=== PATIENT | female | born 1975 | race Caucasian/White ===

== ENCOUNTER 2016-12-27 09:45 | Inpatient (IN) | payer OTHER ==
[~2016-12-27] VITALS: Ht 172.7 cm; Wt 162.3 kg
[~2016-12-27 09:45] MED LIST: CHONCAP PO; MULT-360 PO; ZINC1CAP PO; ZNTT/150 PO
[2016-12-27] MEDS ORDERED: ACETAMINOPHEN 325 MG TAB PO PRN (10:30)
[2016-12-27] MEDS ORDERED: PATIENT'S HEIGHT AND/OR WEIGHT NEEDED SCH (10:45)
[2016-12-27 11:48] VITALS: BP 135/79; PULSE 68; TEMP 36.6; O2SAT 96; Ht 172.7 cm; Wt 162.3 kg
[2016-12-27 12:03] LABS: BASO % 0.1 %; BASO ABS # 0.01 K/uL (0-0.2); COMPLETE YES; EOS % 2.7 %; HEMATOCRIT 38.9 % (37-47); IG% 0.3 %; LYMPH % 17.3 %; LYMPH ABS # 1.74 K/uL (1.2-3.4); MEAN CELL VOLUME 80.2 fL (80-100); MEAN CORPUSCULAR HEMOGLOBIN 24.9 pg (25-34); MEAN CORPUSCULAR HGB CONC 31.1 g/dl (32-36); MONO % 5.8 %; NEUT % 73.8 %; PLATELET COUNT 301 K/uL (130-400); RED BLOOD COUNT 4.85 M/uL (4.2-5.4); WHITE BLOOD COUNT 10.03 K/uL (4.8-10.8)
[2016-12-27 12:08] VITALS: BP 135/79; PULSE 68; TEMP 36.6; O2SAT 96
[2016-12-27 12:23] LABS: PARTIAL THROMBOPLASTIN RATIO 1.2; PROTHROMBIN TIME (PATIENT) 10.4 SECONDS (9.0-12.0)
[2016-12-27 12:29] LABS: C-REACTIVE PROTEIN 4.52 mg/dl (0-0.29); CREATININE 0.61 mg/dl (0.60-1.20)
[2016-12-27 12:32] LABS: ALB/GLOB RATIO 0.9 (0.9-2)
[2016-12-27 12:55] LABS: CALCIUM 9.8 mg/dl (8.5-10.1)
[2016-12-27 15:04] VITALS: BP 128/79; PULSE 69; TEMP 36.6; O2SAT 100
[2016-12-27] MEDS ORDERED: GLUC10007 PO (16:05)
[2016-12-27] MEDS ORDERED: PEDICHW50 PO (16:05)
[2016-12-27] MEDS ORDERED: CALCPOW18 PO (16:05)
--- NOTE | 2016-12-27 16:18 | History and Physical ---
History & Physical Date & Time of Service: Dec 27, 2016 at ~ 14:00 . Chief Complaint: abdominal wall abscess . Primary Care Physician: Braulio Plata M.D. . History of Present Illness Source: patient, clinic records, hospital records 41-year-old female followed by Dr. Plata in [place]. History of MRSA infection several years ago. Developed an abscess in her right lower abdominal wall about 6 days prior to admission. She was seen in [facility] on 12/23/16. Incision and drainage performed. The next day she developed fever and chills. Reevaluated at the Wound Clinic today and was found to have expanding erythema around the incised abscess. She was referred to the hospital for inpatient intravenous antibiotics. . 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 Family History FATHER Hypertension MOTHER Hypertension GRANDFATHER Hypertension GRANDMOTHER Hypertension Diabetes mellitus GRANDFATHER Hypertension FH: pancreatic cancer GRANDMOTHER Hypertension FH: CAD (coronary artery disease) Social History Smoking Status: Never Smoker Alcohol Use: socially Drug Use: none Marital Status: single Occupational Status: employed Allergies Coded Allergies: Cephalexin (Unverified Allergy, Unknown, ., 12/27/16) Home Medications Scheduled Calcium Citrate Tetrahydrate ( (Calcium Citrate), PO BID Chondroitin Sulfate-Vitamin C- (Chondroitin Sulfate), 150 MG PO BID Glucosamine Sulfate (Glucosamine), 1,000 MG PO BID Pediatric Multiple Vitamin W/ (Flintstones Chewable), 1 TAB PO BID Ranitidine (Zantac), 150 MG PO BID Zinc Sulfate (Zinc Sulfate), 220 MG PO DAILY Review of Systems Constitutional: + fever, + chills, + weight loss (intentional) Eyes: No worsening of vision, No diplopia ENT: No nasal symptoms, No sore throat Respiratory: No cough, No shortness of breath Cardiovascular: + edema (chronic right ankle), No chest pain Abdomen: No pain, No nausea, No vomiting, No diarrhea, No GI bleeding Musculoskeletal: + joint pain (knees and feet) Genitourinary - Female: No dysuria, No hematuria Neurologic: + problem reported (occasional migraine headaches) Endocrine: No excessive thirst, No excessive urination Hematologic / Lymphatic: No abnormal bleeding/bruising Integumentary: + rash (as noted in HPI) Physical Exam Vital Signs Date Time Temp Pulse Resp B/P (MAP) Pulse Ox O2 Delivery O2 Flow Rate FiO2 12/27/16 15:04 36.6 69 18 128/79 (95) 100 Room Air 12/27/16 12:08 36.6 68 18 135/79 (97) 96 Room Air 12/27/16 11:48 36.6 68 18 135/79 96 Room Air General Appearance: WD/WN, no apparent distress, + obese Head: normocephalic, atraumatic Eyes: normal inspection, PERRL, EOMI, sclerae normal ENT: normal ENT inspection, hearing grossly normal, pharynx normal Neck: supple, no adenopathy, thyroid normal, no JVD, trachea midline Respiratory/Chest: lungs clear, no respiratory distress, no accessory muscle use Cardiovascular: regular rate, rhythm, no edema, no gallop, no JVD, no murmur Abdomen/GI: normal bowel sounds, non tender, soft, no organomegaly, no pulsatile mass Extremities/Musculoskelatal: normal inspection, no calf tenderness 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 (PERRL, EOMI, no facial palsy), no motor/sensory deficits (motor strength grossly intact), alert, oriented x 3 Skin: + pertinent finding (incised abscess RLQ abdomen with surrounding erythema) Lymphatic: no adenopathy (cervical) Diagnostics Laboratory Results Results Past 24 Hours Test 12/27/16 11:43 Range/Units White Blood Count 10.03 4.8-10.8 K/uL Red Blood Count 4.85 4.2-5.4 M/uL Hemoglobin 12.1 12.0-16.0 g/dL Hematocrit 38.9 37-47 % Mean Corpuscular Volume 80.2 80-100 fL Mean Corpuscular Hemoglobin 24.9 25-34 pg Mean Corpuscular Hemoglobin Concent 31.1 32-36 g/dl Platelet Count 301 130-400 K/uL Mean Platelet Volume 10.0 7.4-10.4 fL Neutrophils (%) (Auto) 73.8 % Lymphocytes (%) (Auto) 17.3 % Monocytes (%) (Auto) 5.8 % Eosinophils (%) (Auto) 2.7 % Basophils (%) (Auto) 0.1 % Neutrophils # (Auto) 7.40 1.4-6.5 K/uL Lymphocytes # (Auto) 1.74 1.2-3.4 K/uL Monocytes # (Auto) 0.58 0.11-0.59 K/uL Eosinophils # (Auto) 0.27 0-0.5 K/uL Basophils # (Auto) 0.01 0-0.2 K/uL RDW Standard Deviation 45.7 36.4-46.3 fL RDW Coefficient of Variation 15.5 11.5-14.5 % Immature Granulocyte % (Auto) 0.3 % Immature Granulocyte # (Auto) 0.03 0.00-0.02 K/uL Erythrocyte Sedimentation Rate 37 0-21 mm/hr Prothrombin Time 10.4 9.0-12.0 SECONDS Prothromb Time International Ratio 1.0 0.9-1.1 Activated Partial Thromboplast Time 30.6 21.0-31.0 SECONDS Partial Thromboplastin Ratio 1.2 Sodium Level 140 136-145 mmol/L Potassium Level 4.0 3.5-5.1 mmol/L Chloride Level 105 98-107 mmol/L Carbon Dioxide Level 28 21-32 mmol/L Anion Gap 7.0 3-11 mmol/L Blood Urea Nitrogen 14 7-18 mg/dl Creatinine 0.61 0.60-1.20 mg/dl Est Creatinine Clear Calc Drug Dose 197.8 ml/min Estimated GFR () 130.5 Estimated GFR (Non- 112.6 BUN/Creatinine Ratio 23.0 10-20 Random Glucose 76 70-99 mg/dl Calcium Level 9.8 8.5-10.1 mg/dl Total Bilirubin 0.3 0.2-1 mg/dl Aspartate Amino Transf (AST/SGOT) 16 15-37 U/L Alanine Aminotransferase (ALT/SGPT) 29 12-78 U/L Alkaline Phosphatase 94 45-117 U/L C-Reactive Protein 4.52 0-0.29 mg/dl Total Protein 7.0 6.4-8.2 gm/dl Albumin 3.4 3.4-5.0 gm/dl Globulin 3.6 2.5-4.0 gm/dl Albumin/Globulin Ratio 0.9 0.9-2 Microbiology Results 12/27/16 Blood Culture, Received Pending 12/27/16 MRSA DNA Surveillance Screen - Final, Complete Specimen Negative for MRSA by DNA Probe 12/27/16 Gram Stain, Received Pending 12/27/16 Wound Culture, Received Pending Impression Assessment and Plan ABSCESS / CELLULITIS ABDOMINAL WALL Worsening cellulitis despite I&D in Wound Clinic. Does not appear to be septic. Wound culture from I&D 12/23 grew MSSA, resistant only to erythromycin. History of MRSA several years ago. Check blood cultures and repeat wound culture. Start therapy with intravenous vancomycin. Consult Wound Care Team. Consult ID. GERD Continue ranitidine. VTE PROPHYLAXIS Low-moderate risk. SQ enoxaparin. Ambulate. DISPOSITION Expected discharge to home. Primary Care follow-up with Dr. Plata. Wound Care follow-up with Dr. Dwyer at [facility]. . Advanced Directives Existing Living Will: No Existing Power of Voice Network Engineer: No VTE Prophylaxis VTE Risk Assessment Done? Y/N: Yes Risk Level: Moderate Given or contraindicated: Enoxaparin (Lovenox)SQ
[2016-12-27] MEDS ORDERED: VANCOMYCIN CONSULT ACTIVE PRN (16:30)
[2016-12-27] MEDS ORDERED: VANCOMYCIN INJ 2,800 MG in SODIUM CHLORIDE 0.9% 500ML 500 ML IV SCH (16:45)
--- NOTE | 2016-12-27 20:17 | Pharmacy Progress Note ---
Pharmacy Abx Initial Consult Date of Service Dec 27, 2016. Pharmacy Dosing Scope Date of Consult: 12/27/16 Consultation requested by: Dr. Reagan Pharmacy is consulted to initiate IV Vancomycin dosing therapy, order appropriate labs and adjust drug dose/frequency. Subjective The patient is a 41 year old female admitted on Dec 27, 2016 at 10:21. Objective Height (Feet): 5 Height (Inches): 8.00 Weight (Kilograms): 162.300 Vital Signs (Past 12Hrs) Vital Signs Past 12 Hours Date Time Temp Pulse Resp B/P (MAP) Pulse Ox O2 Delivery O2 Flow Rate FiO2 12/27/16 15:04 36.6 69 18 128/79 (95) 100 Room Air 12/27/16 12:08 36.6 68 18 135/79 (97) 96 Room Air 12/27/16 11:48 36.6 68 18 135/79 96 Room Air Lab Results (24Hrs) Laboratory Tests (24 Hours) Test 12/27/16 11:43 C-Reactive Protein 4.52 mg/dl (0-0.29) H Erythrocyte Sedimentation Rate 37 mm/hr (0-21) H White Blood Count 10.03 K/uL (4.8-10.8) Red Blood Count 4.85 M/uL (4.2-5.4) Hemoglobin 12.1 g/dL (12.0-16.0) Hematocrit 38.9 % (37-47) Mean Corpuscular Volume 80.2 fL (80-100) Mean Corpuscular Hemoglobin 24.9 pg (25-34) L Mean Corpuscular Hemoglobin Concent 31.1 g/dl (32-36) L Platelet Count 301 K/uL (130-400) Mean Platelet Volume 10.0 fL (7.4-10.4) Neutrophils (%) (Auto) 73.8 % Lymphocytes (%) (Auto) 17.3 % Monocytes (%) (Auto) 5.8 % Eosinophils (%) (Auto) 2.7 % Basophils (%) (Auto) 0.1 % Neutrophils # (Auto) 7.40 K/uL (1.4-6.5) H Lymphocytes # (Auto) 1.74 K/uL (1.2-3.4) Monocytes # (Auto) 0.58 K/uL (0.11-0.59) Eosinophils # (Auto) 0.27 K/uL (0-0.5) Basophils # (Auto) 0.01 K/uL (0-0.2) Micro Results Date/Time Source Procedure Growth Status 12/27/16 11:43 Blood Blood Culture Pending Received 12/27/16 14:25 Nasal MRSA DNA Surveillance Screen - Final Specimen Negative for MRSA by DNA Probe Complete 12/27/16 14:10 Drainage - Surface Abdomen Gram Stain Pending Received 12/27/16 14:10 Drainage - Surface Abdomen Wound Culture Pending Received Assessment & Plan Assessment 41 year old female, morbidly obese with abdominal abscess/cellulitis that Dr. Reagan consulted pharmacy to dose Vancomycin. Plan Vancomycin for treatment of abscess Vancomycin IV * Loading dose: 2800 mg (17 mg/kg) * Maintenance dose: 1900 mg IV (~12 mg/kg) every 8 hours * Goal trough level for abscess : 15-20 mcg/mL * Trough level ordered prior to 0200 dose on 12/29/16 * A less than traditional dose has been selected due to likelihood of drug accumulation in this obese patient. Pharmacy will continue to follow and will adjust dose/frequency as necessary. Thank you.
[2016-12-27] MEDS: ENOXAPARIN 40 MG/0.4 ML SYR SQ SCH (20:45)
[2016-12-27] MEDS: RANITIDINE HCL 150 MG TAB PO SCH (21:20)
[2016-12-27 23:06] VITALS: BP 112/71; PULSE 73; TEMP 36.7; O2SAT 97
[2016-12-28] MEDS ORDERED: VANCOMYCIN TROUGH SCH (01:30)
[2016-12-28] MEDS: VANCOMYCIN INJ 1,900 MG in SODIUM CHLORIDE 0.9% 500ML 500 ML IV SCH ×3 (02:55→18:07)
[2016-12-28 07:19] VITALS: BP 133/90; PULSE 61; TEMP 36.6; O2SAT 100
[2016-12-28 07:54] LABS: CREATININE 0.64 mg/dl (0.60-1.20)
[2016-12-28] MEDS: RANITIDINE HCL 150 MG TAB PO SCH ×2 (09:21→21:10)
[2016-12-28 15:33] VITALS: BP 132/87; PULSE 64; TEMP 36.7; O2SAT 100
[2016-12-28] MEDS: ENOXAPARIN 40 MG/0.4 ML SYR SQ SCH (21:10)
[2016-12-28 23:07] VITALS: BP 114/78; PULSE 74; TEMP 36.6; O2SAT 99
--- NOTE | 2016-12-28 23:32 | Progress Note ---
Medicine Progress Note Date & Time of Visit: Dec 28, 2016 at 10:37 . Subjective No fever. No nausea, vomiting, diarrhea. Abscess repacked by Wound Care Nurse. . Objective Last 8 Hrs Date Time Temp Pulse Resp B/P (MAP) Pulse Ox O2 Delivery O2 Flow Rate FiO2 12/28/16 07:20 Room Air 12/28/16 07:19 36.6 61 16 133/90 (104) 100 Room Air Physical Exam: General- no distress Skin- abdominal wall abscess right lower abdomen bandaged; surrounding erythema less erythematous . Laboratory Results: Last 24 Hours Test 12/27/16 11:43 12/28/16 06:58 White Blood Count 10.03 K/uL Red Blood Count 4.85 M/uL Hemoglobin 12.1 g/dL Hematocrit 38.9 % Mean Corpuscular Volume 80.2 fL Mean Corpuscular Hemoglobin 24.9 pg Mean Corpuscular Hemoglobin Concent 31.1 g/dl Platelet Count 301 K/uL Mean Platelet Volume 10.0 fL Neutrophils (%) (Auto) 73.8 % Lymphocytes (%) (Auto) 17.3 % Monocytes (%) (Auto) 5.8 % Eosinophils (%) (Auto) 2.7 % Basophils (%) (Auto) 0.1 % Neutrophils # (Auto) 7.40 K/uL Lymphocytes # (Auto) 1.74 K/uL Monocytes # (Auto) 0.58 K/uL Eosinophils # (Auto) 0.27 K/uL Basophils # (Auto) 0.01 K/uL RDW Standard Deviation 45.7 fL RDW Coefficient of Variation 15.5 % Immature Granulocyte % (Auto) 0.3 % Immature Granulocyte # (Auto) 0.03 K/uL Erythrocyte Sedimentation Rate 37 mm/hr Prothrombin Time 10.4 SECONDS Prothromb Time International Ratio 1.0 Activated Partial Thromboplast Time 30.6 SECONDS Partial Thromboplastin Ratio 1.2 Sodium Level 140 mmol/L Potassium Level 4.0 mmol/L Chloride Level 105 mmol/L Carbon Dioxide Level 28 mmol/L Anion Gap 7.0 mmol/L Blood Urea Nitrogen 14 mg/dl Creatinine 0.61 mg/dl 0.64 mg/dl Est Creatinine Clear Calc Drug Dose 197.8 ml/min 188.5 ml/min Estimated GFR () 130.5 128.5 Estimated GFR (Non- 112.6 110.8 BUN/Creatinine Ratio 23.0 Random Glucose 76 mg/dl Calcium Level 9.8 mg/dl Total Bilirubin 0.3 mg/dl Aspartate Amino Transf (AST/SGOT) 16 U/L Alanine Aminotransferase (ALT/SGPT) 29 U/L Alkaline Phosphatase 94 U/L C-Reactive Protein 4.52 mg/dl Total Protein 7.0 gm/dl Albumin 3.4 gm/dl Globulin 3.6 gm/dl Albumin/Globulin Ratio 0.9 Date/Time Source Procedure Growth Status 12/27/16 11:43 Blood Blood Culture Pending Received 12/27/16 14:25 Nasal MRSA DNA Surveillance Screen - Final Specimen Negative for MRSA by DNA Probe Complete 12/27/16 14:10 Drainage - Surface Abdomen Gram Stain - Final Resulted 12/27/16 14:10 Wound Culture - Preliminary Staphylococcus Aureus Resulted Assessment & Plan ABSCESS / CELLULITIS ABDOMINAL WALL Presented with worsening cellulitis despite I&D in Wound Clinic. Did not appear to be septic. Wound culture from I&D 12/23 grew MSSA, resistant only to erythromycin. History of MRSA several years ago. Checking blood cultures and repeat wound culture. Consult Wound Care Team. Consult ID. Cellulitis improved with intravenous vancomycin. Hope to transition to oral therapy to finish course of antibiotics. GERD Continue ranitidine. VTE PROPHYLAXIS Low-moderate risk. SQ enoxaparin. Ambulate. DISPOSITION Expected discharge to home. Primary Care follow-up with Dr. Plata. Wound Care follow-up with Dr. Dwyer at [facility]. . Current Inpatient Medications: Current Inpatient Medications Medications (Trade) Dose Ordered Sig/Khadar Route Start Time Stop Time Status Last Admin Dose Admin Enoxaparin Sodium (Lovenox Inj) 40 mg HS SQ 12/27/16 21:00 01/26/17 20:59 12/27/16 20:45 40 MG Acetaminophen (Tylenol Tab) 650 mg Q4H PRN PO 12/27/16 10:30 01/26/17 10:29 Ranitidine HCl (zANTac TAB) 150 mg BID PO 12/27/16 21:00 01/26/17 20:59 12/28/16 09:21 150 MG Vancomycin HCl (Consult) 1 ea UD PRN N/A 12/27/16 16:30 01/26/17 16:29 Vancomycin HCl 1900 mg/Sodium Chloride 538 ml @ 200 mls/hr Q8H IV 12/28/16 02:00 01/07/17 01:59 12/28/16 09:26 200 MLS/HR
[2016-12-29] MEDS ORDERED: VANCOMYCIN TROUGH ONE (01:30)
[2016-12-29] MEDS: VANCOMYCIN INJ 1,900 MG in SODIUM CHLORIDE 0.9% 500ML 500 ML IV SCH (01:35)
[2016-12-29 01:50] LABS: CREATININE 0.66 mg/dl (0.60-1.20)
[2016-12-29 07:07] VITALS: BP 127/80; PULSE 63; TEMP 36.7; O2SAT 97
--- NOTE | 2016-12-29 09:20 | Pharmacy Progress Note ---
Pharmacy Abx Dose Progress Nt Date of Service Dec 29, 2016. Pharmacy Dosing Scope The patient is currently receiving the following antimicrobial agents per Pharmacy consult: Vancomycin 1900 mg IV every 8 hours Objective Height (Feet): 5 Height (Inches): 8.00 Weight (Kilograms): 162.300 Vital Signs (Past 12Hrs) Vital Signs Past 12 Hours Date Time Temp Pulse Resp B/P (MAP) Pulse Ox O2 Delivery O2 Flow Rate FiO2 12/29/16 07:07 36.7 63 17 127/80 (96) 97 Room Air 12/28/16 23:30 Room Air 12/28/16 23:07 36.6 74 16 114/78 (90) 99 Room Air Lab Results (24Hrs) Trough drawn approximately 45 minutes prior to the next dose: Item Value Date Time Creatinine 0.66 mg/dl 12/29/16115 Est Creatinine Clear Calc Drug Dose 182.9 ml/min 12/29/16115 Estimated GFR (Non- 109.7 12/29/16115 Vancomycin Level Trough 24.7 mcg/ml 12/29/16115 Micro Results Date/Time Source Procedure Growth Status 12/27/16 11:43 Blood Blood Culture - Preliminary NO GROWTH TO DATE. Resulted 12/27/16 14:25 Nasal MRSA DNA Surveillance Screen - Final Specimen Negative for MRSA by DNA Probe Complete 12/27/16 14:10 Drainage - Surface Abdomen Gram Stain - Final Complete 12/27/16 14:10 Wound Culture - Final Staphylococcus Aureus Complete RUN DATE: 12/29/16 [facility] LAB PAGE 1 RUN TIME: 827 Specimen Inquiry PATIENT: LELAND RANKIN LOC: [facility] U # : [id number] AGE/SX: 41/F ROOM: [facility] REG : 12/27/[address]: Abraham Reagan M.D. : 1975 BED: 2 DIS : STATUS: ADM IN TLOC: SPEC #: [id number] WINSTON: 12/27/16 STATUS: COMP REQ #: [id number] RECD: 12/27/[address]: Abraham Reagan M.D. SOURCE: DRAIN-SURF ENTR: 12/27/16-[address] [facility] [address]: Braulio Plata M.D. SPDES: ABDULLAHI ORDERED: BRITTANY AGUILAR/BRAN Procedure Result Verified Site GRAM STAIN Final 12/28/16-0750 RESULT MANY WBCs SEEN FEW GRAM POSITIVE COCCI SURFACE WOUND CULTURE Final 12/29/16-827 Organism 1 STAPHYLOCOCCUS AUREUS QUANITY MODERATE SENS SENSITIVITY TO FOLLOW 1. STAPHYLOCOCCUS AUREUS Target Route Dose RX AB Cost M.I.C. IQ ------ ----- ------ -- ------ -------- - ------ TRIMET/SULFA S <=0.5/ 9.5 * OXACILLIN S 0.5 VANCOMYCIN S 2 ERYTHROMYCIN R >4 TETRACYCLINE S <=4 CLINDAMYCIN S <=0.5 DAPTOMYCIN S 1 S = SENSITIVE I = INTERMEDIATE R = RESISTANT Risk Factors for Resistance * History of MRSA infection Assessment & Plan Assessment 41 year old female patient receiving IV Vancomycin for treatment of an abdominal wall abscess and worsening cellulitis around the wound site despite I& D in the Wound Clinic. Wound culture from 12/23/16 demonstrated MSSA with sood- sensitivity except Erythromycin. ID consult pending. Patient has a history of MRSA infection. Of note, Vancomycin trough was drawn approximately 45 minutes prior to the next dose thus actual trough ~20 mcg/mL. In addition, with BMI 54.4 kg/m2, further drug accumulation is likely, thus will widen the dosing interval. Day # 3 of IV Vancomycin therapy Plan Vancomycin IV * Trough level of 24.7 mcg/mL (actual trough ~20) is slightly supratherapeutic. * Change dose of IV Vancomycin 1900 mg IV every 10 hours * Goal trough level for Vancomycin: 15 to 20 mcg/mL * Vancomycin trough level ordered for: 12/30/16 prior to the 1800 hours dose. * Less than traditional dose and/or extended dosing interval selected due to likelihood of drug accumulation in obese patient. Pharmacy will continue to follow and will adjust dose/frequency as necessary. Thank you.
--- NOTE | 2016-12-29 09:30 | Medical Consult ---
Consultation Date of Consultation: Dec 29, 2016. Attending Physician: Abraham Reagan M.D. Reason for Consultation: Cellulitis History of Present Illness 41-year-old female with history of diabetes mellitus, previously only fairly well controlled, with history of prior left groin abscess associated with MRSA several years ago, who presented to her primary care physician last week with 1 week history of infection in her right lower quadrant, beginning with several pustules, then developing progressively worsening redness, pain, and swelling with purulent drainage. She was seen in the [facility] where area was opened and drained, with cultures growing methicillin sensitive Staph aureus. Patient worsened over the next 1-2 days and was found to have spread of cellulitis and was admitted to the hospital for further management. She was started empirically on IV vancomycin with clinical improvement. Wound culture again grew methicillin sensitive Staph aureus. Patient has not had any significant fever, chills, or other systemic complaints. She has been tolerating vancomycin without apparent difficulty. This morning, she states that she feels somewhat worse, and states that there is slightly more redness around the area of drainage. Past Medical/Surgical History Medical Problems: (1) GERD (gastroesophageal reflux disease) (2) H/O slipped capital femoral epiphysis (SCFE) (3) History of methicillin resistant staphylococcus aureus (MRSA) (4) Juvenile osteochondrosis of pelvis (5) Morbid obesity with BMI of 50.0-59.9, adult (6) Snoring (7) Vulvar endometriosis Surgical Problems: (1) History of left hip replacement (2) S/p bartholin gland excision (3) S/p right ankle arthroplasty (4) S/P tonsillectomy (5) S/p vulvectomy Family History Diabetes mellitus GRANDMOTHER FH: CAD (coronary artery disease) GRANDMOTHER FH: pancreatic cancer GRANDFATHER Hypertension FATHER MOTHER GRANDFATHER GRANDMOTHER GRANDFATHER GRANDMOTHER Social History Smoking Status: Never Smoker Alcohol Use: socially Drug Use: none Marital Status: single Occupation Status: employed Allergies Coded Allergies: Cephalexin (Unverified Allergy, Unknown, ., 12/27/16) Current Inpatient Medications Current Inpatient Medications Medications (Trade) Dose Ordered Sig/Khadar Route Start Time Stop Time Status Last Admin Dose Admin Enoxaparin Sodium (Lovenox Inj) 40 mg HS SQ 12/27/16 21:00 01/26/17 20:59 12/28/16 21:10 40 MG Acetaminophen (Tylenol Tab) 650 mg Q4H PRN PO 12/27/16 10:30 01/26/17 10:29 Ranitidine HCl (zANTac TAB) 150 mg BID PO 12/27/16 21:00 01/26/17 20:59 12/28/16 21:10 150 MG Vancomycin HCl (Consult) 1 ea UD PRN N/A 12/27/16 16:30 01/26/17 16:29 Vancomycin HCl 1900 mg/Sodium Chloride 538 ml @ 200 mls/hr Q10H IV 12/29/16 12:00 01/07/17 01:59 Review of Systems All systems were reviewed and are negative except as per HPI Physical Exam Date Time Temp Pulse Resp B/P (MAP) Pulse Ox O2 Delivery O2 Flow Rate FiO2 12/29/16 07:07 36.7 63 17 127/80 (96) 97 Room Air 12/28/16 23:30 Room Air 12/28/16 23:07 36.6 74 16 114/78 (90) 99 Room Air 12/28/16 16:00 Room Air 12/28/16 15:33 36.7 64 18 132/87 (102) 100 Room Air General Appearance: WD/WN, no apparent distress, + obese Head: normocephalic, atraumatic Eyes: normal inspection, EOMI, sclerae normal ENT: normal ENT inspection, hearing grossly normal, pharynx normal Neck: supple, no adenopathy, thyroid normal, trachea midline Respiratory/Chest: chest non-tender, lungs clear, normal breath sounds, no respiratory distress Cardiovascular: regular rate, rhythm, no gallop, no murmur Abdomen/GI: normal bowel sounds, soft, no organomegaly, + tenderness (RLQ around open wound) Back: normal inspection, no CVA tenderness Extremities/Musculoskelatal: normal inspection, no calf tenderness, normal capillary refill, non-tender Neurologic/Psych: alert, normal mood/affect, oriented x 3 Skin: normal color, warm/dry, + pertinent finding (RLQ abscess cavity with some surrounding erythema) Lymphatic: no adenopathy Laboratory Results RUN DATE: 12/29/16 [facility] LAB PAGE 1 RUN TIME: 827 Specimen Inquiry PATIENT: LELAND RANKIN LOC: [facility] U # : [id number] AGE/SX: 41/F ROOM: [facility] REG : 12/27/[address]: Abraham Reagan M.D. : 1975 BED: 2 DIS : STATUS: ADM IN TLOC: SPEC #: [id number] WINSTON: 12/27/16-1409 STATUS: COMP REQ #: [id number] RECD: 12/27/[address]: Abraham Reagan M.D. SOURCE: BETH-SURF ENTR: 12/27/16-[address]: Braulio Plata M.D.C: ABD ORDERED: SURF KEIRA OSBORN Procedure Result Verified Site GRAM STAIN Final 12/28/16-075 RESULT MANY WBCs SEEN FEW GRAM POSITIVE COCCI SURFACE WOUND CULTURE Final 12/29/16-827 Organism 1 STAPHYLOCOCCUS AUREUS QUANITY MODERATE SENS SENSITIVITY TO FOLLOW 1. STAPHYLOCOCCUS AUREUS Target Route Dose RX AB Cost M.I.C. IQ ------ ----- ------ -- ------ -------- - ------ TRIMET/SULFA S <=0.5/ 9.5 * OXACILLIN S 0.5 VANCOMYCIN S 2 ERYTHROMYCIN R >4 TETRACYCLINE S <=4 CLINDAMYCIN S <=0.5 DAPTOMYCIN S 1 S = SENSITIVE I = INTERMEDIATE R = RESISTANT END OF REPORT Last 24 Hours Test 12/29/16 01:16 Creatinine 0.66 mg/dl Est Creatinine Clear Calc Drug Dose 182.9 ml/min Estimated GFR () 127.2 Estimated GFR (Non- 109.7 Vancomycin Level Trough 24.7 mcg/ml Assessment & Plan 41 yo female with recurrent MSSA-associated RLQ abscess as well as folliculitis , had been improving with vancomycin, ? slightly worse today. Will give dose of daptomycin this AM, but hopefully can transition to oral Bactrim, likely 2 week course. ID service with like to follow up with patient after discharge, prior to discontinuation of antibiotics. Will discuss with all involved.
[2016-12-29] MEDS: DAPTOmycin IV 700 MG in SODIUM CHLORIDE 0.9% 50ML 50 ML IV SCH (10:26)
[2016-12-29] MEDS: RANITIDINE HCL 150 MG TAB PO SCH ×2 (10:26→20:41)
[2016-12-29] MEDS ORDERED: VANCOMYCIN INJ 1,900 MG in SODIUM CHLORIDE 0.9% 500ML 500 ML IV SCH (12:00)
--- NOTE | 2016-12-29 13:11 | Wound Progress Note: Inpatient ---
Wound Progress Note Date of Service Dec 29, 2016. Subjective Patient seen today for follow-up evaluation of an abdominal wall abscess. Patient states she had some slight discomfort but no increased drainage. Patient denies any fever chills or night sweats. Patient denies any other systemic complaints. Objective Vital Signs Date Time Temp Pulse Resp B/P (MAP) Pulse Ox O2 Delivery O2 Flow Rate FiO2 12/29/16 07:07 36.7 63 17 127/80 (96) 97 Room Air 12/28/16 23:30 Room Air 12/28/16 23:07 36.6 74 16 114/78 (90) 99 Room Air 12/28/16 16:00 Room Air 12/28/16 15:33 36.7 64 18 132/87 (102) 100 Room Air Physical Exam General Appearance: no apparent distress Abdomen: non tender, soft, + pertinent finding (significant decrease in erythema noted at the abscess site. No active drainage noted. Depth is 3.2 cm. No fluctuance noted.) Laboratory Results Last 24 Hours Test 12/29/16 01:16 Creatinine 0.66 mg/dl Est Creatinine Clear Calc Drug Dose 182.9 ml/min Estimated GFR () 127.2 Estimated GFR (Non- 109.7 Vancomycin Level Trough 24.7 mcg/ml Assessment and Plan Assessment abscess right abdominal wall with improvement Plan the wound site will be packed again today with iodoform packing. Upon discharge the patient will then have Aquasol A G packing on a daily basis until seen in the outpatient environment. Further antibiotic management will be handled by Dr. Burns. Patient will be seen next week in the clinic.
[2016-12-29 15:45] VITALS: BP 148/89; PULSE 61; TEMP 36.5; O2SAT 99
[2016-12-29] MEDS: ENOXAPARIN 40 MG/0.4 ML SYR SQ SCH (20:41)
--- NOTE | 2016-12-29 21:00 | Progress Note ---
Medicine Progress Note Date & Time of Visit: Dec 29, 2016 at 12:20 . Subjective Tired. No fever. Has some discomfort around abdominal wall abscess. Nausea, no vomiting. No diarrhea. . Objective Last 8 Hrs Date Time Temp Pulse Resp B/P (MAP) Pulse Ox O2 Delivery O2 Flow Rate FiO2 12/29/16 09:00 Room Air 12/29/16 07:07 36.7 63 17 127/80 (96) 97 Room Air Physical Exam: General- no distress Abdomen- + BS, soft, nontender Skin- abdominal wall abscess right lower abdomen bandaged; surrounding erythema receding and less erythematous . Laboratory Results: Last 24 Hours Test 12/29/16 01:16 Creatinine 0.66 mg/dl Est Creatinine Clear Calc Drug Dose 182.9 ml/min Estimated GFR () 127.2 Estimated GFR (Non- 109.7 Vancomycin Level Trough 24.7 mcg/ml Assessment & Plan ABSCESS / CELLULITIS ABDOMINAL WALL Presented with worsening cellulitis despite I&D in Wound Clinic. Did not appear to be septic. Wound culture from I&D 12/23 grew MSSA, resistant only to erythromycin. History of MRSA several years ago. Checking blood cultures and repeat wound culture. Wound Care Team and ID consulted. Initially treated with IV vancomycin. Antibiotic therapy changed to IV daptomycin. Wound packed today. GERD Continue ranitidine. VTE PROPHYLAXIS Low-moderate risk. SQ enoxaparin. Ambulate. DISPOSITION Expected discharge to home. Primary Care follow-up with Dr. Plata. Wound Care follow-up with Dr. Dwyer at [facility]. . Current Inpatient Medications: Current Inpatient Medications Medications (Trade) Dose Ordered Sig/[facility] Route Start Time Stop Time Status Last Admin Dose Admin Enoxaparin Sodium (Lovenox Inj) 40 mg HS SQ 12/27/16 21:00 01/26/17 20:59 12/28/16 21:10 40 MG Acetaminophen (Tylenol Tab) 650 mg Q4H PRN PO 12/27/16 10:30 01/26/17 10:29 Ranitidine HCl (zANTac TAB) 150 mg BID PO 12/27/16 21:00 01/26/17 20:59 12/29/16 10:26 150 MG Daptomycin 700 mg/ Sodium Chloride 64 ml @ 100 mls/hr DAILY@1000 IV 6/29/17 10:00 01/08/17 09:59 12/29/16 10:26 100 MLS/HR
[2016-12-29 23:10] VITALS: BP 117/78; PULSE 70; TEMP 36.3; O2SAT 99
[2016-12-30 07:16] VITALS: BP 138/79; PULSE 71; TEMP 36.6; O2SAT 96
[2016-12-30 07:36] LABS: CREATININE 0.64 mg/dl (0.60-1.20)
[2016-12-30 08:20] VITALS: O2SAT 96
[2016-12-30] MEDS: RANITIDINE HCL 150 MG TAB PO SCH (08:44)
[2016-12-30] MEDS: DAPTOmycin IV 700 MG in SODIUM CHLORIDE 0.9% 50ML 50 ML IV SCH (10:07)
[2016-12-30 10:27] VITALS: BP 138/79; PULSE 71; TEMP 36.6; O2SAT 96
[2016-12-30 15:09] VITALS: BP 134/86; PULSE 64; TEMP 37.2; O2SAT 99
[2016-12-30] MEDS ORDERED: SULF800T23 PO (16:48)
--- NOTE | 2016-12-30 16:53 | Discharge Instructions ---
Discharge Instructions Date of Service Dec 30, 2016. Admission Reason for Admission: abscess and cellulitis of abdominal wall . Discharge Discharge Diagnosis / Problem: abscess and cellulitis of abdominal wall Discharge Goals Goal(s): Improve disease control Activity Recommendations Activity Limitations: resume your previous activity . Instructions / Follow-Up Instructions / Follow-Up APPOINTMENTS: WOUND CLINIC Please call clinic on Monday to see when your appointment will be. FAMILY MED[facility]INE Dr. Plata INSTRUCTIONS: Wound packing as instructed by Wound Care Team. Take trimethoprim / sulfamethoxazole (Bactrim DS) 2 pills twice a day for 2 weeks. Avoid excessive sun exposure. Drink plenty of fluids. Prescription sent to your pharmacy. Seek medical attention if you have: * temperature above 101 * worsening pain or redness of abdomen * rash * abdominal pain, nausea, vomiting * diarrhea, dark stools or bloody stools * any unanswered questions or concerns Call 911 if symptoms are severe. Call if you have any questions or problems. My cell # is [phone]. You can also reach a [facility] hospitalist on duty at [facility] 24 hours a day by calling [phone]. Please take good care of yourself. Abraham Reagan . Current Hospital Diet Patient's current hospital diet: Regular Diet Discharge Diet Recommended Diet: Regular Diet (high protein) Pending Studies Studies pending at discharge: no Medical Emergencies . Who to Call and When: Medical Emergencies: If at any time you feel your situation is an emergency, please call 911 immediately. . Non-Emergent Contact Non-Emergency issues call your: Primary Care Provider, Hospital Doctor, Specialist (Wound Clinic or Infectious Disease) . . "Provider Documentation" section prepared by Abraham Reagan. . VTE Core Measure Inpt VTE Proph given/why not?: Enoxaparin (Lovenox)SQ
[2016-12-30] MEDS ORDERED: VANCOMYCIN TROUGH ONE (17:30)
--- NOTE | 2016-12-30 20:29 | Progress Note ---
Medicine Progress Note Date & Time of Visit: Dec 30, 2016 at 16:46 . Subjective Doing well. Less abdominal wall pain. No fever or chills. No nausea, vomiting, diarrhea. . Objective Last 8 Hrs Date Time Temp Pulse Resp B/P (MAP) Pulse Ox O2 Delivery O2 Flow Rate FiO2 12/30/16 15:30 Room Air 12/30/16 15:09 37.2 64 18 134/86 (102) 99 Room Air 12/30/16 10:27 36.6 71 18 96 Room Air Physical Exam: General- no distress Lungs- clear Heart- regular Abdomen- + BS, soft, nontender Skin- abdominal wall abscess right lower abdomen bandaged; surrounding erythema receding and less erythematous . Laboratory Results: Last 24 Hours Test 12/30/16 06:21 Creatinine 0.64 mg/dl Est Creatinine Clear Calc Drug Dose 188.6 ml/min Estimated GFR () 128.5 Estimated GFR (Non- 110.8 Assessment & Plan ABSCESS / CELLULITIS ABDOMINAL WALL Presented with worsening cellulitis despite I&D in Wound Clinic. Did not appear to be septic. Wound culture from I&D 12/23 grew MSSA, resistant only to erythromycin. History of MRSA several years ago. Blood cultures negative. Repeat wound culture grew same MSSA. Wound Care Team and ID consulted. Initially treated with IV vancomycin. Antibiotic therapy changed to IV daptomycin with improvement. Discharge on trimethoprim/sulfamethoxazole DS 2 tabs BID x 14 days. GERD Continue ranitidine. VTE PROPHYLAXIS SQ enoxaparin. Ambulate. DISPOSITION Discharged to home. Primary Care follow-up with Dr. Plata. Wound Care follow-up with Dr. Dwyer at [facility]. . Consultants: Wound Care with Dr. Dwyer. ID with Dr. Burns. . Procedures: Intravenous medications . Current Inpatient Medications: Current Inpatient Medications Medications (Trade) Dose Ordered Sig/[facility] Route Start Time Stop Time Status Last Admin Dose Admin Enoxaparin Sodium (Lovenox Inj) 40 mg HS SQ 12/27/16 21:00 01/26/17 20:59 12/29/16 20:41 40 MG Acetaminophen (Tylenol Tab) 650 mg Q4H PRN PO 12/27/16 10:30 01/26/17 10:29 Ranitidine HCl (zANTac TAB) 150 mg BID PO 12/27/16 21:00 01/26/17 20:59 12/30/16 08:44 150 MG Daptomycin 700 mg/ Sodium Chloride 64 ml @ 100 mls/hr DAILY@1000 IV 12/29/16 10:00 01/08/17 09:59 12/30/16 10:07 100 MLS/HR
--- NOTE | 2016-12-31 19:00 | Discharge Summary ---
Discharge Summary Date of Service Dec 31, 2016. Discharge Summary Admission Date: Dec 27, 2016 at 10:21 Discharge Date: Dec 30, 2016 Discharge Disposition: Home Principal Diagnosis: abscess + cellulitis right lower abdominal wall with methicillin sensitive Staph aureus . Procedures: Intravenous medications . Consultations: Wound Care with Dr. Dwyer. ID with Dr. Burns. . Medication Reconciliation New Medications: Sulfa/Trimethoprim (Bactrim Ds 800MG/160MG) Tab 2 TAB PO BID, #56 TAB avoid excessive sun exposure drink plenty of fluids Continued Medications: Calcium Citrate Tetrahydrate ( (Calcium Citrate) 1 Pow Pow PO BID, #2 TAB Chondroitin Sulfate-Vitamin C- (Chondroitin Sulfate) 1 Cap Cap 150 MG PO BID Glucosamine Sulfate (Glucosamine) 1,000 Mg Tab 1000 MG PO BID for joints, #1 TAB Pediatric Multiple Vitamin W/ (Flintstones Chewable) 1 Chw Chw 1 TAB PO BID, #1 TAB Ranitidine (Zantac) 150 Mg Tab 150 MG PO BID, TAB Zinc Sulfate (Zinc Sulfate) 220 Mg Cap 220 MG PO DAILY, CAP Admission Information HPI (per Admitting provider): 41-year-old female followed by Dr. Plata in [place]. History of MRSA infection several years ago. Developed an abscess in her right lower abdominal wall about 6 days prior to admission. She was seen in [facility] on 12/23/16. Incision and drainage performed. The next day she developed fever and chills. Reevaluated at the Wound Clinic today and was found to have expanding erythema around the incised abscess. She was referred to the hospital for inpatient intravenous antibiotics. . Physical Exam (per Admitting): General Appearance: WD/WN, no apparent distress, + obese Head: normocephalic, atraumatic Eyes: normal inspection, PERRL, EOMI, sclerae normal ENT: normal ENT inspection, hearing grossly normal, pharynx normal Neck: supple, no adenopathy, thyroid normal, no JVD, trachea midline Respiratory/Chest: lungs clear, no respiratory distress, no accessory muscle use Cardiovascular: regular rate, rhythm, no edema, no gallop, no JVD, no murmur Abdomen/GI: normal bowel sounds, non tender, soft, no organomegaly, no pulsatile mass Extremities/Musculoskelatal: normal inspection, no calf tenderness 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 Did not appear to be septic. Wound culture from I&D 12/23 grew MSSA, resistant only to erythromycin. History of MRSA several years ago. Blood cultures negative. Repeat wound culture grew same MSSA. Wound Care Team and ID consulted. Initially treated with IV vancomycin. Antibiotic therapy changed to IV daptomycin with improvement. Discharge on trimethoprim/sulfamethoxazole DS 2 tabs BID x 14 days. GERD Continue ranitidine. VTE PROPHYLAXIS SQ enoxaparin. Ambulate. DISPOSITION Discharged to home. Primary Care follow-up with Dr. Plata. Wound Care follow-up with Dr. Dwyer at [facility] W[facility]. . Discharge Instructions Date of Service Dec 30, 2016. Admission Reason for Admission: abscess and cellulitis of abdominal wall . Discharge Discharge Diagnosis / Problem: abscess and cellulitis of abdominal wall Discharge Goals Goal(s): Improve disease control Activity Recommendations Activity Limitations: resume your previous activity . Instructions / Follow-Up Instructions / Follow-Up APPOINTMENTS: WOUND CLINIC Please call clinic on Monday to see when your appointment will be. FAMILY MEDICINE Dr. Plata INSTRUCTIONS: Wound packing as instructed by Wound Care Team. Take trimethoprim / sulfamethoxazole (Bactrim DS) 2 pills twice a day for 2 weeks. Avoid excessive sun exposure. Drink plenty of fluids. Prescription sent to your pharmacy. Seek medical attention if you have: * temperature above 101 * worsening pain or redness of abdomen * rash * abdominal pain, nausea, vomiting * diarrhea, dark stools or bloody stools * any unanswered questions or concerns Call 911 if symptoms are severe. Call if you have any questions or problems. My cell # is [phone]. You can also reach a [facility] hospitalist on duty at [facility] 24 hours a day by calling [phone]. Please take good care of yourself. Abraham Reagan . Current Hospital Diet Patient's current hospital diet: Regular Diet Discharge Diet Recommended Diet: Regular Diet (high protein) Pending Studies Studies pending at discharge: no Medical Emergencies . Who to Call and When: Medical Emergencies: If at any time you feel your situation is an emergency, please call 911 immediately. . Non-Emergent Contact Non-Emergency issues call your: Primary Care Provider, Hospital Doctor, Specialist (Wound Clinic or Infectious Disease) . . "Provider Documentation" section prepared by Abraham Reagan. . VTE Core Measure Inpt VTE Proph given/why not?: Enoxaparin (Lovenox)SQ . Additional Copies To Braulio Plata M.D.; Varun Dwyer, DO
== END 2016-12-30 17:36 | disposition home or self-care (01) | DRG 603 ==
LOC: C.MSN 10:21
PROVIDERS: ADMIT Hospitalist; ATTEND Hospitalist
DX: L02.211 Cutaneous abscess of abdominal wall (principal); Z68.43 Body mass index [BMI] 50.0-59.9, adult; L03.311 Cellulitis of abdominal wall; K21.9 Gastro-esophageal reflux disease without esophagitis; E66.01 Morbid (severe) obesity due to excess calories; B95.61 Methicillin susceptible Staphylococcus aureus infection as the cause of diseases classified elsewhere; N80.8 Other endometriosis; Z90.79 Acquired absence of other genital organ(s); Z79.899 Other long term (current) drug therapy; Z88.1 Allergy status to other antibiotic agents; Z82.49 Family history of ischemic heart disease and other diseases of the circulatory system; Z83.3 Family history of diabetes mellitus; Z83.79 Family history of other diseases of the digestive system; Z96.642 Presence of left artificial hip joint; Z96.661 Presence of right artificial ankle joint